=== PATIENT | female | born 1970 | race Caucasian/White ===

== ENCOUNTER 2020-10-01 10:04 | Outpatient (CLI) | payer OTHER, SELFPAY ==
--- NOTE | ~2020-10-01 | MM_ITS ---
EXAMINATION: MM screening [place] [facility] w [place] HISTORY: Screening mammogram TECHNIQUE: Craniocaudal and mediolateral oblique 3-D tomosynthesis images were obtained and synthetic 2-D images were generated. CAD analysis was submitted and interpreted. COMPARISON: None, baseline BREAST PARENCHYMAL COMPOSITION: The breasts are almost entirely fatty. FINDINGS: RIGHT BREAST: A possible mass is present in the slightly inner breast adjacent to the nipple. No susp icious architectural distortion or calcification are identified. LEFT BREAST: There is a questionable mass in the anterior third of the breast. There also appear to b e dilated ducts in the subareolar breast. IMPRESSION: 1. Bilateral breast findings as described above. 2. Additional mammographic views and possible breast ultrasound are recommended. BI-RADS Category 0: Incomplete: Needs additional imaging evaluation. Reviewed, dictated and finalized at location A. [employer] IMPRESSION: 1. Bilateral breast findings as described above. 2. Additional mammographic views and possible breast ultrasound are recommended . BI-RADS Category 0: Incomplete: Needs additional imaging evaluation.
== END 2020-10-01 10:05 | disposition home or self-care (01) ==
LOC: ANHIMG 10:08
PROVIDERS: PCP Family Medicine; Visit Provider Family Medicine
DX: Z12.31 Encounter for screening mammogram for malignant neoplasm of breast (principal); R92.8 Other abnormal and inconclusive findings on diagnostic imaging of breast
CPT/HCPCS: 77063; 77067

== ENCOUNTER 2021-09-28 01:13 | Day surgery (SDC) | payer OTHER, SELFPAY ==
[2021-09-20 13:42] VITALS: BMI 38.4
[2021-09-28 06:18] VITALS: BP 149/78; PULSE 78; RESP 18; TEMP 36.4; O2SAT 100
[2021-09-28] MEDS: LACTATED RINGERS 1,000 ML 150 ML IV CONT (06:22)
--- NOTE | 2021-09-28 06:54 | P.PNAN_ITS ---
Anes - Initial Pre Proc Eval Procedure: Operation Date: 09/28/21 07:30 Proposed Procedures p Colonoscopy - Maximus Aguirre MD Date/Time: 09/28/21 06:54 Surgeon: Maximus Aguirre MD Pre Op Diagnosis: positive cologuard Patient Data Age: 51 Gender: F Height: 1.61 m Weight: 97.8 kg Last Vital Signs Temp 36.4 C L 09/28/21 06:18 Pulse 78 09/28/21 06:18 Resp 18 09/28/21 06:18 BP 149/78 H 09/28/21 06:18 Pulse Ox 100 09/28/21 06:18 Allergies Allergy/AdvReac Type Severity Reaction Status Date / Time No Known Allergies Allergy Verified 09/28/21 06:17 Home Medications Medication Instructions Recorded Confirmed Type amlodipine 5 mg PO HS 09/20/21 09/28/21 History aspirin [Adult Aspirin] 81 mg PO DAILY 09/20/21 09/28/21 History atorvastatin 40 mg PO DAILY 09/20/21 09/28/21 History ergocalciferol (vitamin D2) 1,250 mcg PO WEEKLY 09/20/21 09/28/21 History lisinopril 10 mg PO DAILY 09/20/21 09/28/21 History metoprolol succinate 50 mg PO DAILY 09/20/21 09/28/21 History Patient hx anesthesia problems: none Family hx anesthesia problems: none Results Review: All pre-operative results and documents have been reviewed as part of the pre-operative evaluation. [facility] Past Medical History Medical History (Updated 09/28/21 @ 06:55 by Se Major MD) HTN (hypertension) Hyperlipidemia Obesity PVD (peripheral vascular disease) Social History Social History (Updated 09/28/21 @ 06:56 by Se Major MD) Smoking packs per day: 1.5 Smoking cigarettes per day: 30.0 Years smoked: 25 Smoking pack-years: 37.50 Smoking status: Former smoker Tobacco type: cigarettes Alcohol intake: never Substance use: former Substance use type: marijuana Living arrangements: with family Spiritual care concerns: No Anes - Eval Final PreProcedure Day of Procedure 09/28/21 06:54 Patient weight: obese Heart: regular rate and rhythm Lungs: clear to auscultation Airway: Mallampati scale class II Neurological: alert and oriented Last oral intake: >/= 8 hours ASA classification: III Emergent: no Anesthetic plan: proceed Anesthesia type and monitoring: general GIVS and standard monitoring Results Review: All pre-operative results and documents have been reviewed as part of the pre-operative evaluation. Informed Consent: The patient's anesthetic plan and its attendant risks and benefits were discussed with the patient/family/POA. Questions were solicited and answers provided to the satisfaction of the patient/family/POA.
--- NOTE | 2021-09-28 07:32 | PM.HPGS ---
History of Present Illness History of Present Illness Consent: Risks, benefits, and alternatives have been discussed and questions answered. Patient agrees to proceed with procedure. Chief complaint: positive cologuard Narrative: Reema Bone is a 51 year old female here for first colonoscopy, had positive cologuard Review of Systems Constitutional: Constitutional: Denies headache(s) and Denies weakness Eyes: Eyes: Denies blurry vision ENT: Reports Normal hearing present, Denies headache(s) and Denies neck pain Cardiovascular: Cardiovascular: Denies chest pain and Denies dyspnea Respiratory: Respiratory: Denies dyspnea Gastrointestinal: Gastrointestinal: Reports no additional gastrointestinal complaints Genitourinary: Genitourinary: Denies dysuria Musculoskeletal: Musculoskeletal: Denies neck pain Integumentary/Breasts: Skin/Breast: Denies dry skin Neurologic: Reports Normal hearing present, Denies headache(s) and Denies weakness Psychiatric: Psychiatric: Denies anxiety Endocrine: Endocrine: Denies change in body appearance Hematologic/Lymphatic: Hematologic/Lymphatic: Denies easy bleeding Allergic/Immunologic: Allergic/Immunologic: Denies urticaria PMFSH Past Medical History Medical History (Updated 09/28/21 @ 07:32 by Maximus Aguirre MD) HTN (hypertension) Hyperlipidemia Obesity Positive colorectal cancer screening using Cologuard test PVD (peripheral vascular disease) Social History Social History (Updated 09/28/21 @ 06:56 by Se Major MD) Smoking packs per day: 1.5 Smoking cigarettes per day: 30.0 Years smoked: 25 Smoking pack-years: 37.50 Smoking status: Former smoker Tobacco type: cigarettes Alcohol intake: never Substance use: former Substance use type: marijuana Living arrangements: with family Spiritual care concerns: No Meds Home Medications and Allergies Home Medications Medication Instructions Recorded Confirmed Type amlodipine 5 mg PO HS 09/20/21 09/28/21 History aspirin [Adult Aspirin] 81 mg PO DAILY 09/20/21 09/28/21 History atorvastatin 40 mg PO DAILY 09/20/21 09/28/21 History ergocalciferol (vitamin D2) 1,250 mcg PO WEEKLY 09/20/21 09/28/21 History lisinopril 10 mg PO DAILY 09/20/21 09/28/21 History metoprolol succinate 50 mg PO DAILY 09/20/21 09/28/21 History Allergies Allergy/AdvReac Type Severity Reaction Status Date / Time No Known Allergies Allergy Verified 09/28/21 06:17 Vital Signs Vital Signs - 24 hr 09/28/21 06:18 Temperature 97.5 F L Pulse Rate 78 Respiratory Rate 18 Blood Pressure 149/78 H Pulse Oximetry 100 Exam Const: General: comfortable and no acute distress HENMT: General nose exam: Normal nares present Eyes: General: appearance normal, both eyes and all related structures Neck: Neck: no JVD Resp: Auscultation: clear to auscultation bilaterally Cardio: Rate: regular rate Rhythm: regular rhythm GI: Inspection: non-distended GI Palp: Yes Soft to palpation Skin: General skin exam: normal color Neuro: General: gait normal Speech: normal speech Extrem: General: normal to inspection Psych: Mental Status: mental status grossly normal Assessment and Plan Assessment and plan (1) Positive colorectal cancer screening using Cologuard test: Code(s): R19.5 - Other fecal abnormalities Status: Acute Assessment and Plan: colonoscopy
[2021-09-28 07:52] VITALS: BP 109/61; PULSE 72; RESP 18; O2SAT 100
[2021-09-28 08:03] VITALS: BP 124/59; PULSE 82; RESP 22; O2SAT 100
[2021-09-28 08:12] VITALS: BP 131/71; PULSE 70; RESP 22; O2SAT 100
== END 2021-09-28 08:24 | disposition home or self-care (01) ==
PROVIDERS: PCP Family Medicine; Visit Provider Internal Medicine Gastroenterology
PROC: 0DJD8ZZ Inspection of Lower Intestinal Tract, Via Natural or Artificial Opening Endoscopic (ICD-10-PCS; CPT 45378; principal; 2021-09-28 07:30)
DX: R19.5 Other fecal abnormalities (principal); K63.5 Polyp of colon; K64.8 Other hemorrhoids; I10 Essential (primary) hypertension; E78.5 Hyperlipidemia, unspecified; I73.9 Peripheral vascular disease, unspecified; Z87.891 Personal history of nicotine dependence; Z79.82 Long term (current) use of aspirin; E66.9 Obesity, unspecified; Z68.37 Body mass index [BMI] 37.0-37.9, adult
CPT/HCPCS: 45385; 88305; J2704; J7120

== ENCOUNTER 2022-03-26 10:19 | Emergency (ER) | payer OTHER, SELFPAY ==
[2022-03-26 10:23] VITALS: BP 137/83; PULSE 110; RESP 16; TEMP 37.1; O2SAT 98
[2022-03-26 10:57] LABS: Basophils Percent Auto 0.3 % (0.2-1.2); Hematocrit 37.9 % (37.0-47.0); Hemoglobin 12.7 g/dL (12.0-15.0); Immature Granulocyte Absolute 0.05 K/mm3 (0.00-0.031); Immature Granulocyte Percent A 0.5 % (0-0.5); Lymphocytes Absolute Auto 1.02 K/mm3 (0.9-3.2); Lymphocytes Percent Auto 9.7 % (18.3-44.2); Mean Corpuscular HGB Conc 33.5 g/dl (32-36); Mean Corpuscular Hemoglobin 30.5 pg (26-34); Mean Corpuscular Volume 91.1 fl (80-100); Mean Platelet Volume 11.1 fl (7.4-10.4); Monocytes Absolute Auto 0.9 K/mm3 (0.1-0.6); Monocytes Percent Auto 8.2 % (2.6-8.5); Neutrophils Absolute Auto 8.6 K/mm3 (1.3-6.7); Neutrophils Percent Auto 81.3 % (45.5-73.1); Platelet Count Result 164 k/mm3 (150-375); Red Blood Count 4.16 M/mm3 (4.2-5.4); Red Cell Distribution Width 12.5 % (11.5-14.5); White Blood Count 10.5 K/mm3 (4.5-10.0)
[2022-03-26 11:10] LABS: Alanine Aminotransferase 20 U/L (6-35); Albumin Level 4.3 g/dL (3.5-5.1); Alkaline Phosphatase 126 U/L (38-126); Anion Gap 9 mmol/L (8-16); Aspartate Amino Transferase 23 U/L (14-36); Bilirubin,Total 0.4 mg/dL (0.2-1.3); Blood Urea Nitrogen 10 mg/dL (7-17); Calcium 8.4 mg/dL (8.4-10.2); Carbon Dioxide 22 mmol/L (22-30); Chloride 100 mmol/L (98-107); Estimated CRCL calculation 92 ml/min; Estimated Glomerular Filt Rate > 60; Glucose 138 mg/dL (65-110); Lipase 34 U/L (23-300); Potassium 3.4 mmol/L (3.4-5.0); Sodium 131 mmol/L (137-145)
[2022-03-26 11:12] LABS: Appearance Urine Cloudy (Clear); Bilirubin Urine 2+ (Negative); Blood Urine 3+ (Negative); Color Urine Amber (Yellow); Glucose Urine UA Negative (Negative); Ketones Urine Trace mg/dL (Negative); Leukocyte Esterase Ur Negative LEU/UL (Negative); Nitrate Urine Negative (Negative); Protein Urine 2+ mg/dL (Negative); Specific Grav Ur 1.025 (1.001-1.035)
[2022-03-26 11:16] LABS: Bacteria Urine Trace /hpf; Mucus Urine Rare /lpf; RBC Urine 51-75 /hpf (0-2); Squamous Epithelial Cell Urine Many /hpf (Few); WBC Clumps Urine Present /HPF
[2022-03-26] MEDS: ONDANSETRON INJ 4 MG/2 ML VIAL IV PUSH (11:18)
[2022-03-26] MEDS: SODIUM CHLORIDE 0.9% IV 1,000 ML 999 ML IV CONT (11:18)
[2022-03-26 11:20] LABS: Add Urine Microscopic? YES
[2022-03-26 12:02] LABS: SARS-CoV-2 RNA PCR Negative
--- NOTE | 2022-03-26 13:09 | ED.GENADULT ---
HPI - General Adult General Chief complaint: Nausea/Vomiting/Diarrhea Stated complaint: partial heat stroke Time Seen by Provider: 03/26/22 11:02 History of Present Illness HPI narrative: Patient is a 51-year-old female who presents ER with fatigue and fever over the last 3 days. Associated with some nausea and poor p.o. intake with the exception of popsicles.. Patient reports she was exposed to the heat during a barbecue which precipitated her symptoms. No known sick contacts. No runny nose or sore throat or productive cough. Denies urinary symptoms. Related Data Home Medications Medication Instructions Recorded Confirmed amlodipine 5 mg PO HS 09/20/21 09/28/21 aspirin [Adult Aspirin] 81 mg PO DAILY 09/20/21 09/28/21 atorvastatin 40 mg PO DAILY 09/20/21 09/28/21 ergocalciferol (vitamin D2) 1,250 mcg PO WEEKLY 09/20/21 09/28/21 lisinopril 10 mg PO DAILY 09/20/21 09/28/21 metoprolol succinate 50 mg PO DAILY 09/20/21 09/28/21 Allergies Allergy/AdvReac Type Severity Reaction Status Date / Time No Known Allergies Allergy Verified 03/26/22 10:49 Review of Systems Review of Systems: All systems reviewed & are unremarkable except as noted in HPI and below Constitutional: Constitutional: Reports chills, Reports fatigue and Reports fever(s) ENT: Denies nasal congestion and Denies sore throat Cardiovascular: Cardiovascular: Denies chest pain and Denies radiating jaw, neck or arm pain Respiratory: Respiratory: Denies cough, Denies dyspnea and Denies wheezing Gastrointestinal: Gastrointestinal: Denies abdominal pain, Denies diarrhea, Reports nausea and Denies vomiting Genitourinary: Genitourinary: Denies nocturia, Denies dysuria and Denies flank pain [facility] Past Medical History Medical History (Updated 03/26/22 @ 13:13 by Torrey Henderson MD) HTN (hypertension) Hyperlipidemia Obesity Positive colorectal cancer screening using Cologuard test PVD (peripheral vascular disease) Social History Social History (Updated 09/28/21 @ 06:56 by Se Major MD) Smoking packs per day: 1.5 Smoking cigarettes per day: 30.0 Years smoked: 25 Smoking pack-years: 37.50 Smoking status: Former smoker Tobacco type: cigarettes Alcohol intake: never Substance use: former Substance use type: marijuana Spiritual care concerns: No Exam Narrative: GENERAL: Well-appearing, well-nourished, and in no acute distress. HEAD: Normocephalic, atraumatic. EYES: PERRL and EOMI. CHEST: Clear to auscultation. No respiratory distress. HEART: Regular rate and rhythm. Normal peripheral pulses. ABDOMEN: Soft, nontender, nondistended. EXTREMITIES: Normal range of motion. No edema. SKIN: Warm, dry, no rash. NEURO: Alert and oriented x3. PSYCH: Normal mood and affect. Course Course Emergency Course: Feels improved with fluids. Urine with contamination but given her fever will treat for possible UTI given white blood cell clumps and red/white cells present. Vital Signs Vital signs: Vital Signs Temperature 98.7 F 03/26/22 10:23 Pulse Rate 110 H 03/26/22 10:23 Respiratory Rate 16 03/26/22 10:23 Blood Pressure 137/83 03/26/22 10:23 Pulse Oximetry 98 03/26/22 10:23 Temperature 98.7 F 03/26/22 10:23 Pulse Rate 110 H 03/26/22 10:23 Respiratory Rate 16 03/26/22 10:23 Blood Pressure 137/83 03/26/22 10:23 Pulse Oximetry 98 03/26/22 10:23 Medical Decision Making Vital Signs Vital Signs: Vital Signs Temperature 98.7 F 03/26/22 10:23 Pulse Rate 110 H 03/26/22 10:23 Respiratory Rate 16 03/26/22 10:23 Blood Pressure 137/83 03/26/22 10:23 Pulse Oximetry 98 03/26/22 10:23 Temperature 98.7 F 03/26/22 10:23 Pulse Rate 110 H 03/26/22 10:23 Respiratory Rate 16 03/26/22 10:23 Blood Pressure 137/83 03/26/22 10:23 Pulse Oximetry 98 03/26/22 10:23 Lab Data Result diagrams: 03/26/22 10:52 03/26/22 10:52 Labs: Lab Results
== END 2022-03-26 13:36 | disposition home or self-care (01) ==
PROVIDERS: Emergency Provider Emergency Medicine; PCP Family Medicine
DX: N39.0 Urinary tract infection, site not specified (principal); Z20.822 Contact with and (suspected) exposure to COVID-19; I10 Essential (primary) hypertension; E78.5 Hyperlipidemia, unspecified; I73.9 Peripheral vascular disease, unspecified; E66.9 Obesity, unspecified; Z68.37 Body mass index [BMI] 37.0-37.9, adult; Z79.82 Long term (current) use of aspirin
CPT/HCPCS: 36415; 80053; 81001; 81025; 83690; 85025; 87086; 87088; 96361; 96374; 99284; C9803; J2405; J7030; U0003; U0005